=== PATIENT | female | born 1980 | race American Indian/Alaskan Native ===

== ENCOUNTER 2018-12-07 09:45 | Inpatient (IN) | payer MEDICAID ==
[2018-12-07] MEDS ORDERED: LACTATED RINGERS 1,000 ML ONE ×2 (10:35→11:59)
[2018-12-07] MEDS ORDERED: BRETHINE SUB-Q PRN (12:14)
[2018-12-07] MEDS ORDERED: STADOL IV PRN (12:14)
[2018-12-07] MEDS ORDERED: XYLOCAINE 2% INFILTRATI ONE (12:14)
[2018-12-07] MEDS ORDERED: MINERAL OIL PO PRN (12:14)
[2018-12-07] MEDS ORDERED: SUBLIMAZE IV PRN (12:14)
[2018-12-07] MEDS ORDERED: BRETHINE IVP PRN (12:14)
--- NOTE | 2018-12-07 12:19 | History and Physical Report ---
History of Present Illness Date of examination: 12/07/18 Date of admission: 12/07/18 11:33 Chief complaint: Contractions, Leaking fluid History of present illness: 38yo G 3 P 2 0 0 2 at 39 weeks 3 days by LMP. She reports leaking fluid since 12/04/18 and +Fms but denies vaginal bleeding. Nitrazine test neg. No fluid present in vaginal vault per RN. Membranes felt during exam. 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 Her course was complicated by obesity, pregestational diabetes (on Metformin 850mg BID; co- managed w/APA), AMA, and Anemia (on iron iron therapy). Labs: O+, Antibody Screen neg, RI, VDRL NR, HBsAg neg, HIV neg, GBS unknown. Past History Past Medical History: diabetes Past Surgical History: no surgical history Family/Genetic History: diabetes (mother) Social history: , lives with family, full code. denies: smoking, alcohol abuse, prescription drug abuse, IV drug use - Obstetrical History Expected Date of Delivery: 12/11/18 Actual Gestation: 39 Week(s) 3 Day(s) : 3 Para: 2 Hx # Term Pregnancies: 2 Number of Pregnancies: 0 Spontaneous Abortions: 0 Induced : 0 Number of Living Children: 2 #1 Infant Gender: Female year: 2,012 (01/03/2011) Birthweight: 2.722 kg (6 lbs) Method of Delivery: Vaginal Gestational age at delivery: 39 Complications: none #2 Gender: Female year: 2,[birth year] (08/22/2012) Birthweight: 3.175 kg (7 lbs) Method of Delivery: Vaginal Gestational age at delivery: 39 Complications: none Medications and Allergies Allergies Allergy/AdvReac Type Severity Reaction Status Date / Time No Known Allergies Allergy Unverified 12/07/18 12:03 Review of Systems All systems: negative - Vital Signs Vital signs: Vital Signs Pulse BP 85 129/82 12/07/18 10:00 12/07/18 10:00 Temp Pulse Resp BP Pulse Ox 98.5 F 73 18 134/85 12/07/18 10:02 12/07/18 12:05 12/07/18 10:02 12/07/18 12:05 - Obstetrical FHR: auscultation normal, category 1 Uterine Contraction Monitor Mode: External Cervical Dilatation: 4 Cervical Effacement Percentage: 70 station: -2 Uterine Contraction Pattern: Regular Results Result Diagrams: 12/07/18 10:40 All other labs normal. Assessment and Plan - Patient Problems (1) 39 weeks gestation of Current Visit: Yes Status: Acute (2) Active labor at term Current Visit: Yes Status: Acute Plan to address problem: Admit to L&D with routine labor orders GBS prophylaxis due to unknown status Consulted Dr. Pickering about plan of care. OBUS ordered for EFW & BOLIVAR Anticipate vaginal delivery (3) Pregestational diabetes mellitus, modified White class B Current Visit: Yes Status: Acute Plan to address problem: On Metformin Accucheck per protocol
[2018-12-07] MEDS ORDERED: AMPICILLIN/NS 2 GM/100 ML 2 GM/100 ML BAG IV ONE (12:34)
[2018-12-07] MEDS ORDERED: PITOCin/NS 20 UNIT/1000ML DRIP 20 UNITS/1,000 ML BAG IV SCH ×2 (13:00→23:00)
[2018-12-07 13:09] LABS: Hematocrit 37.4 % (30.3-42.9); Hemoglobin 12.7 gm/dl (10.1-14.3); Mean Corpuscular HGB Conc 34 % (30-34); Mean Corpuscular Volume 92 fl (79-97); Platelet Count 280 K/mm3 (140-440); Red Blood Count 4.09 M/mm3 (3.65-5.03)
[2018-12-07] MEDS ORDERED: AMPICILLIN/NS 1 GM/50 ML 1 GM/50 ML BAG IV SCH (17:00)
[2018-12-07] MEDS: LACTATED RINGERS 1,000 ML IV SCH (19:37)
--- NOTE | 2018-12-07 19:39 | Progress Note ---
Assessment and Plan - Patient Problems (1) 39 weeks gestation of Current Visit: Yes Status: Acute (2) Pregestational diabetes mellitus, modified White class B Current Visit: Yes Status: Acute (3) Active labor at term Current Visit: Yes Status: Acute (4) macrosomia Current Visit: Yes Status: Acute (5) Failure of cervical dilation Current Visit: Yes Status: Acute Plan to address problem: I discussed the findings with the patient. I told her that the EFW is above the acceptable weight for trial of labor in pre-gestational diabetic patients. Risks of shoulder dystocia, injury and were discussed. I told her that she needs to be delivered via C/section. Risks, benefits, and alternatives of the procedure were discussed in detail with the patient which included but not limited to the risk of infection, hemorrhage requiring blood transfusion, injury to the bowel or bladder and blood vessels. The patient expressed understanding, her questions were answered, and she gave informed consent. Keep NPO. monitoring. Anesthesia has been notified. Subjective - Subjective Date of service: 12/07/18 Principal diagnosis: SIUP at 39 weeks gestation in early labor. Interval history: Patient is a 38 year old , LMP, EDC at 39 weeks and 3 days gestation who was admitted earlier today in labor at 4 cm. She is a pre-gestational DM-2 and has been on metformin. She has been co-managed with [facility]. Her last sonogram at [facility] is not available. I came to evaluate the patient for failure to dilate. I found lying in bed with contractions every 3-4 minutes. tracing is CAT1. Cervix 4 cm/80%/-3. Fundal height is 46 cm. Sonogram was ordered which showed EFW of 4672 gm. Objective - Vital Signs Vital Signs: Vital Signs - 12hr 12/07/18 12/07/18 12/07/18 10:00 10:02 12:05 Temperature 98.5 F Pulse Rate 85 73 Respiratory 18 Rate Blood Pressure 129/82 134/85 Blood Pressure [Left] 12/07/18 12/07/18 12/07/18 13:19 17:49 19:20 Temperature 98.3 F 98.9 F Pulse Rate 107 H Respiratory 18 16 Rate Blood Pressure 136/79 Blood Pressure [Left] 12/07/18 19:21 Temperature 98.6 F Pulse Rate 107 H Respiratory 18 Rate Blood Pressure Blood Pressure 136/79 [Left] - Exam Cardiovascular: Normal S1, Normal S2 Lungs: Clear to auscultation Vulva: both: normal FHR: category 1 Uterine Contraction Monitor Mode: External Cervical Dilatation: 4 Cervical Effacement Percentage: 80 station: -3 Uterine Contraction Pattern: Irregular Uterine Contraction Intensity: Moderate Deep Tendon Reflex Grade: Normal +2 - Labs Labs: Abnormal Labs 12/07/18 12/07/18 10:40 12:05 RDW 13.0 L POC Glucose 66 L Laboratory Results - last 24 hr 12/07/18 12/07/18 12/07/18 10:40 10:40 12:05 WBC 9.3 RBC 4.09 Hgb 12.7 Hct 37.4 MCV 92 MCH 31 MCHC 34 RDW 13.0 L Plt Count 280 POC Glucose 66 L Blood Type O POSITIVE Antibody Screen Negative - Results US- obstetric: report reviewed
--- NOTE | 2018-12-07 19:48 | Anesthesia Consultation ---
Anesthesia Consult and Med Hx Date of service: 12/07/18 - Airway Anesthetic Teeth Evaluation: Good ROM Head & Neck: Adequate Mental/Hyoid Distance: Adequate Mallampati Class: Class II Intubation Access Assessment: Probably Good - Pulmonary Exam CTA: Yes - Cardiac Exam Cardiac Exam: RRR - Pre-Operative Health Status ASA Pre-Surgery Classification: ASA2, Emergency Proposed Anesthetic Plan: Spinal - Pulmonary Hx Asthma: No COPD: No Hx Pneumonia: No - Cardiovascular System Hx Hypertension: No - Central Nervous System Hx Seizures: No Hx Psychiatric Problems: No - Endocrine Hx Renal Disease: No Hx End Stage Renal Disease: No Hx Hypothyroidism: No Hx Hyperthyroidism: No - Hematic Hx Anemia: No Hx Sickle Cell Disease: No - Other Systems Hx Alcohol Use: No
[2018-12-07] MEDS ORDERED: NARCAN 0.4 MG/1 ML IV PRN ×2 (19:49→22:10)
[2018-12-07] MEDS ORDERED: PHENERGAN PO PRN (19:49)
[2018-12-07] MEDS ORDERED: PHENERGAN PR PRN ×2 (19:49→22:10)
[2018-12-07] MEDS ORDERED: ZOFRAN IV PRN ×2 (19:49→22:10)
[2018-12-07] MEDS ORDERED: METHERGINE IM ONE (19:57)
[2018-12-07] MEDS ORDERED: SODIUM CHLORIDE FLUSH SYRINGE 10 ML IV PRN (20:00)
[2018-12-07] MEDS ORDERED: PEPCID IV ONE ×2 (20:05→20:07)
[2018-12-07] MEDS ORDERED: REGLAN IV ONE (20:05)
[2018-12-07] MEDS ORDERED: BICITRA PO ONE (20:05)
[2018-12-07] MEDS ORDERED: BICITRA ONE (20:07)
[2018-12-07] MEDS ORDERED: REGLAN ONE (20:07)
[2018-12-07] MEDS ORDERED: ANCEF/STERILE WATER 2 GM/20 ML 2 GM/20 ML SYRINGE IV ONE (20:08)
[2018-12-07] MEDS ORDERED: SUBLIMAZE ONE ×2 (20:16→20:17)
[2018-12-07] MEDS ORDERED: NACL 0.9% IR ONE (21:00)
[2018-12-07] MEDS ORDERED: LACTATED RINGERS 1,000 ML IV SCH (21:00)
[2018-12-07] MEDS ORDERED: ANCEF/STERILE WATER 2 GM/20 ML 2 GM/20 ML SYRINGE IV NR (21:00)
[2018-12-07] MEDS ORDERED: WATER FOR IRRIG STERILE IR ONE (21:00)
[2018-12-07] MEDS: PITOCin/NS 20 UNIT/1000ML DRIP 20 UNITS/1,000 ML BAG IV SCH ×2 (21:22→22:38)
[2018-12-07] MEDS ORDERED: ANUCORT-HC PR PRN (22:10)
[2018-12-07] MEDS ORDERED: MORPHINE IV PRN ×2 (22:10)
[2018-12-07] MEDS ORDERED: TYLENOL PO PRN (22:10)
[2018-12-07] MEDS ORDERED: TUCKS PAD TP PRN (22:10)
[2018-12-07] MEDS ORDERED: SENOKOT PO PRN (22:10)
[2018-12-07] MEDS ORDERED: MYLICON PO PRN (22:10)
[2018-12-07] MEDS ORDERED: TORADOL IV PRN (22:10)
[2018-12-07] MEDS ORDERED: LANSINOH TP PRN (22:10)
[2018-12-07] MEDS ORDERED: MILK OF MAGNESIA PO PRN (22:10)
--- NOTE | 2018-12-07 22:10 | Operative Report ---
Operative Report Operative Report: Preoperative diagnosis: 1. SIUP at 39 weeks and 3 days gestation in active labor. 2. Failure to dilate. 3. macrosomia 4. Pre-gestational diabetes type 2. 5. Obesity Postoperative diagnosis: Same. Procedure: Primary low-transverse section. Surgeon: Dr. Pickering Test Manager: none Anesthesia: spinal. IVF: RL 2.1 liter EBL: 600 cc Urine: 200 cc clear Complications: none Intraoperative findings: 1. A male found in an JANETTE position, delivered at 9:21 M, Apgars 8 at 1 minute and 9 at 5 minutes, weight 9 lbs. 12 oz. 2. Normal fallopian tubes and ovaries bilaterally. Procedure details: Risks, benefits, and alternatives of the procedure were discussed in detail with the patient which included but not limited to the risk of infection, hemorrhage requiring blood transfusion, injury to the bowel or bladder and blood vessels. The patient expressed understanding, her questions were answered, and she gave informed consent. The patient was taken to the operating room with an IV fluid infusing Ringers lactate. In the operating room, she was placed in a siting position and given spinal anesthesia. Then, she was placed in a dorsal supine position with a leftward tilt. Royal catheter and Venodyne boots were placed. The abdomen was washed and she was prepared and draped in usual sterile fashion. After confirming adequate spinal anesthesia, the Pfannenstiel skin incision was made in the lower abdomen about 2 cm above the pubic symphysis using the scalpel. This incision was carried down to the underlying fascia using the Bovie. The fascia was opened bilaterally in a curvilinear fashion using the Bovie. 2 straight Kocker clamps were used to grasp the upper edge of the fascia from which the underlying rectus abdominis muscles was dissected off using the Bovie. A similar procedure was done with the lower edge of the fascia to dissect the underlying rectus abdominis muscle. The muscle was bluntly from the midline by pulling. The parietal peritoneum was grasped with 2 hemostat clamps and entered sharply using Metzenbaum scissors. A quick survey of the anatomy revealed a gravid uterus, normal fallopian tubes and ovaries bilaterally. A bladder flap was created. Von'O retractor was placed in the incision for proper visualization. A low transverse incision was made in the lower uterine segment using the scalpel and extended bilaterally in a curvilinear fashion using bandage scissors. There was scant amount of clear amniotic fluid as the membranes have been ruptured during the labor. The infant was found in an JANETTE position, the head was delivered atraumatically followed by the delivery of the shoulders and the rest of the body at 2:21 PM. The cord was clamped 2 and cut and the infant was handed off to the waiting furniture builder. The infant was a male, Apgars were 8 at 1 minute and 9 at 5 minutes, weight was 9 pounds and 12 ounces. Cord blood was collected. The placenta was delivered manually and it was complete with a three-vessel cord. The uterine cavity was cleaned of clots and debris using dry lap sponges. The uterine incision was repaired in a running locked fashion using 0 Vicryl sutures. A second layer of imbrication was placed. The gutters were cleaned of clots and debris using dry lap sponges. After confirming adequate hemostasis, the instruments were removed from the abdominal cavity. The rectus muscle was reapproximated in an interrupted fashion using 0 Vicryl sutures. The fascia was closed in a running fashion using 0 Vicryl sutures. The skin was closed with iona. Sterile dressing was placed. The counts of laps, needles, sponges, and instruments were correct 2. The patient tolerated the procedure well, she was taken to the recovery room in a stable condition.
[2018-12-07] MEDS ORDERED: SODIUM CHLORIDE FLUSH SYRINGE 10 ML IV NR (23:00)
[2018-12-07] MEDS ORDERED: TORADOL IV ONE (23:06)
[2018-12-07] MEDS: TORADOL IV PRN (23:12)
[2018-12-08] MEDS: LACTATED RINGERS 1,000 ML IV SCH (04:06)
[2018-12-08] MEDS: TORADOL IV PRN (05:15)
[2018-12-08] MEDS: PERCOCET 5/325 PO PRN ×3 (08:41→22:59)
--- NOTE | 2018-12-08 09:44 | Progress Note ---
Assessment and Plan A: 38 yo. @ POD 1 Obesity Pregestational DM- stable blood sugars AMA O+ bld type Breast and bottle feeding P: Continue routine PP orders Anticipate d/c home in 48 hrs Subjective - Subjective Date of service: 12/08/18 (941) Principal diagnosis: SIUP at 39 weeks gestation in early labor; C/S delivery; AMA; Type II DM Patient reports: appetite normal (clear liquid diet), pain well controlled, flatus, no voiding normally (saldana in place), no bowel movement, no ambulating normally : doing well, other (and breast feeding), bottle feeding Objective - Vital Signs Latest vital signs: Vital Signs Temp Pulse Resp BP BP Pulse Ox 12/08/18 07:41 99.0 F 86 18 124/66 12/08/18 05:15 18 12/08/18 04:20 99.4 F 88 20 109/56 12/08/18 04:03 18 12/08/18 00:00 98.9 F 78 20 150/72 12/07/18 23:31 99.1 F 86 24 147/74 12/07/18 23:16 80 17 159/60 98 12/07/18 23:12 18 12/07/18 23:00 82 18 148/91 98 12/07/18 22:47 74 25 H 140/72 95 12/07/18 22:30 73 22 141/77 95 12/07/18 22:16 97.7 F 84 22 120/93 95 12/07/18 19:21 98.6 F 107 H 18 136/79 12/07/18 19:20 107 H 136/79 12/07/18 17:49 98.9 F 16 12/07/18 13:19 98.3 F 18 12/07/18 12:05 73 134/85 12/07/18 10:02 98.5 F 18 12/07/18 10:00 85 129/82 Intake and Output 12/07/18 12/08/18 12/08/18 23:59 07:59 15:59 Intake Total 3600 1600 Output Total 850 800 Balance 2750 800 Intake: IV 3600 1000 Lactated Ringers 1,000 ml 1000 @ 125 mls/hr IV DIRECT KARI Rx#:[id number] PITOCin/NS 20 UNIT/1000ML 1000 DRIP 20 units In 1,000 ml @ As Directed IV TITR KARI Rx#:[id number] Oral 600 Output: Urine 850 800 Indwelling Catheter 800 Other: Total, Intake Amount 360 Total, Output Amount 400 Estimated Blood Loss 600 - Exam Breasts: Present: deferred Cardiovascular: Present: Regular rate, Normal S1, Normal S2 Lungs: Present: Clear to auscultation, Normal air movement Abdomen: Present: soft, tenderness Uterus: Present: firm, fundal height at umbilicus Extremities: Present: normal Deep Tendon Reflex Grade: Normal +2 Incision: Present: dressed (no shadow bleeding noted, dry and clean) - Labs Labs: Abnormal lab results 12/07/18 12/07/18 Range/Units 10:40 12:05 RDW 13.0 L (13.2-15.2) % POC Glucose 66 L (70-105)
[2018-12-08] MEDS: PRENATAL VITAMIN PO SCH (10:04)
[2018-12-08] MEDS: FEOSOL PO SCH (10:04)
[2018-12-08 10:42] LABS: Hemoglobin 10.2 gm/dl (10.1-14.3)
[2018-12-08] MEDS: IBUPROFEN PO PRN ×2 (16:54→22:58)
--- NOTE | 2018-12-09 00:42 | Ultrasound Report ---
PROCEDURE: US OB FOLLOW UP HISTORY: Pregestational Diabetes, 39 weeks gestation FINDINGS: Real-time ultrasound of the pelvis was performed by transabdominal technique and demonstrat es a single live intrauterine gestation, in cephalic lie, with biparietal diameter of 9.9 cm which co rresponds to 40 weeks and 4 days. Abdominal circumference was 37.9 cm which corresponds to 41 weeks and 6 days. Estimated weight was 4672 g. Amniotic fluid index was 16.5 cm which is within normal limits. There is an anterior grade 2 placenta. cardiac activity is present at 143 bpm. IMPRESSION: Live intrauterine gestation in cephalic lie at approximately 41 weeks and 2 days This document is electronically signed by Stanley Addison MD., December 09 2018 12:39:52 AM ET
[2018-12-09] MEDS: PERCOCET 5/325 PO PRN ×4 (05:28→23:22)
[2018-12-09] MEDS: IBUPROFEN PO PRN ×4 (05:29→23:23)
[2018-12-09] MEDS: FEOSOL PO SCH (09:22)
[2018-12-09] MEDS: PRENATAL VITAMIN PO SCH (09:23)
[2018-12-10] MEDS: IBUPROFEN PO PRN ×2 (06:08→10:51)
[2018-12-10] MEDS: PERCOCET 5/325 PO PRN ×2 (06:10→10:50)
[2018-12-10] MEDS: PRENATAL VITAMIN PO SCH (09:08)
[2018-12-10] MEDS: FEOSOL PO SCH (09:08)
[2018-12-10 09:10] VITALS: BP 109/55
--- NOTE | 2018-12-10 10:32 | Progress Note ---
Assessment and Plan A: POD#3 s/p Primary c/s Pregestational Diabetes; Metformin 850mg PO QD Breast and bottle feeding Infant under jcarlos-lights VSS Pain well controlled P: Continue routine PP orders D/C today; Plan rooming in as allows F/U incision check 1 week Subjective - Subjective Date of service: 12/10/18 Principal diagnosis: POD#3 s/p Primary c/s, Pregestational Diabetes Interval history: See H&P and Operative note Patient reports: appetite normal, voiding normally, pain well controlled, flatus, ambulating normally, no bowel movement [place]: doing well, other (Breast/bottle; under Jcarlos-lights) Objective - Vital Signs Latest vital signs: Vital Signs Temp Pulse Resp BP BP Pulse Ox 12/10/18 08:58 98.5 F 82 16 109/55 98 12/10/18 06:10 18 12/10/18 06:08 18 12/10/18 00:31 98.7 F 100 H 120/70 98 12/09/18 23:23 18 12/09/18 23:22 18 12/09/18 17:09 19 12/09/18 17:08 19 12/09/18 16:42 98.9 F 96 H 18 116/66 12/09/18 16:00 96 H 97 12/09/18 12:30 99.9 F H 90 18 112/69 12/09/18 12:12 92 H 98 12/09/18 11:24 20 12/09/18 11:21 20 Intake and Output 12/09/18 12/10/18 12/10/18 23:59 07:59 15:59 Intake Total 360 120 Balance 360 120 Intake: Oral 120 Intake, Free Water 360 Other: Total, Intake Amount 120 # Voids Void 1 - Exam Breasts: Present: normal, Cardiovascular: Present: Regular rate, Normal S1, Normal S2, No murmurs Lungs: Present: Clear to auscultation, Normal air movement Abdomen: Present: normal appearance, soft, tenderness (as expected post-op), normal bowel sounds. Absent: distention Vulva: both: normal Uterus: Present: firm, fundal height below umbilicus (-1) Extremities: Present: normal Deep Tendon Reflex Grade: Normal +2 Incision: Present: normal (LTI, closed with iona, CDI, no drainage), dry, intact - Labs Labs: Abnormal lab results 12/09/18 12/10/18 Range/Units 22:17 07:38 POC Glucose 131 H 68 L (70-105)
--- NOTE | 2018-12-10 10:36 | Discharge Summary ---
Providers - Providers Date of Admission: 12/07/18 11:33 Date of discharge: 12/10/18 Attending physician: MANISH CERVANTES MD Primary care physician: MANISH CERVANTES MD Hospitalization Reason for admission: active labor, IUP at term Delivery: Procedure: primary low transverse (Failure to progress) Procedure details: See operative note Incision: normal (LTI, closed with iona, CDI, no drainage. ), dry, intact Other procedures: none complications: none Discharge diagnosis: IUP at term delivered baby: male Condition at discharge: Good Disposition: DC-01 TO HOME OR SELFCARE Plan - Provider Discharge Summary Activity: routine, no sex for 6 weeks, no heavy lifting 4 weeks, no strenuous exercise Diet: routine Instructions: routine Additional instructions: [] Smoking cessation referral if applicable(refer to patient education folder for contact #) [] Refer to [facility]'s [facility] Booklet Call your doctor immediately for: * Fever > 100.5 * Heavy vaginal bleeding ( >1 pad per hour) * Severe persistent headache * Shortness of breath * Reddened, hot, painful area to leg or breast * Drainage or odor from incision. * Keep incision clean and dry at all times and follow doctor's instructions regarding bathing/showering - Follow up plan Follow up: MANISH CERVANTES MD [Primary Care Provider] - 7 Days
== END 2018-12-10 12:03 | disposition home or self-care (01) | DRG 766 ==
LOC: TRG 09:45 → LD 11:33 → OB 12-08 00:03
PROVIDERS: ADMIT Obstetrics & Gynecology; ATTEND Obstetrics & Gynecology
PROC: 10D00Z1 Extraction of Products of Conception, Low, Open Approach (ICD-10-PCS; principal; 2018-12-07)
DX: O24.12 Pre-existing type 2 diabetes mellitus, in childbirth (principal); O62.0 Primary inadequate contractions; E66.01 Morbid (severe) obesity due to excess calories; O99.214 Obesity complicating childbirth; E11.9 Type 2 diabetes mellitus without complications; O36.63X0 Maternal care for excessive fetal growth, third trimester, not applicable or unspecified; Z3A.39 39 weeks gestation of pregnancy; Z37.0 Single live birth; Z83.3 Family history of diabetes mellitus
CPT/HCPCS: 36415; 59025; 76816; 82962; 85014; 85018; 85027; 86592; 86850; 86900; 86901; 88307; G0378; J0290; J0690; J1885; J2210; J2270; J2590; J2765; J3010; J7120